=== PATIENT | male | born 1990 | race Caucasian/White ===

== ENCOUNTER 2017-09-15 23:21 | Emergency (ER) | payer MEDICAID, OTHER ==
[2017-09-15 23:28] VITALS: BP 147/77; RESP 18; TEMP 98.3; O2SAT 100
--- NOTE | 2017-09-16 01:02 | ED PDOC ---
Lower Extremity Pain/Injury Time Seen by Provider: 09/15/17 23:33 Chief Complaint (Nursing): Lower Extremity Problem/Injury Chief Complaint (Provider): Left knee pain, twisted History Per: Patient History/Exam Limitations: no limitations Onset/Duration Of Symptoms: Hrs Current Symptoms Are (Timing): Still Present Additional Complaint(s): 27 yo male with no medical problems presents with left knee pain for a few hours. Pt states he was playing football and planted his foot. When he went to push off and turn he left like his knee gave out and popped back in. Pt did not take anything for pain. Pain primarily inner knee and does not radiate. Pt states he cannot bend his knee all the way. Past Medical History Vital Signs: Last Vital Signs Temp 98.3 F 09/15/17 23:25 Pulse 105 H 09/15/17 23:25 Resp 18 09/15/17 23:25 BP 147/77 09/15/17 23:25 Pulse Ox 100 09/15/17 23:25 - Surgical History Surgical History: Appendectomy - Family History Family History: States: Unknown Family Hx - Home Medications Home Medications: Ambulatory Orders Medication Instructions Recorded Clindamycin [Cleocin] 300 mg PO TID #30 cap 11/09/15 Ibuprofen [Motrin Tab] 800 mg PO Q8 PRN #15 tab 11/09/15 - Allergies Allergies/Adverse Reactions: Allergies Allergy/AdvReac Type Severity Reaction Status Date / Time No Known Allergies Allergy Verified 11/09/15 12:58 - ECG O2 Sat by Pulse Oximetry: 100 Medical Decision Making Medical Decision Making: x-ray without acute fracture or dislocation. Knee immobilizer and crutches given. Disposition - Clinical Impression Clinical Impression: Knee injury - Patient ED Disposition Is Patient to be Admitted: No Counseled Patient/Family Regarding: Diagnosis, Need For Followup - Disposition Referrals: Moy Solo MD [Staff Provider] - Disposition: Routine/Home Disposition Time: :23 Condition: GOOD Additional Instructions: Ice, elevation, motrin. Instructions: Knee Pain (DC)
[2017-09-16 01:47] VITALS: PULSE 87
--- NOTE | 2017-09-16 08:28 | RAD ---
PROCEDURE: Left Knee Radiographs. HISTORY: Pain. COMPARISON: None. FINDINGS: BONES: No acute fracture or destructive bony lesion identified. JOINTS: Normal. No osteoarthritis. JOINT EFFUSION: Mild suprapatellar bursa effusion. OTHER FINDINGS: None. IMPRESSION: No acute fracture or dislocation. Mild suprapatellar bursa effusion identified.
== END 2017-09-16 01:47 | disposition home or self-care (01) ==
LOC: H.ER 23:21
DX: S89.92XA Unspecified injury of left lower leg, initial encounter (principal); X50.9XXA Other and unspecified overexertion or strenuous movements or postures, initial encounter; Y92.89 Other specified places as the place of occurrence of the external cause

== ENCOUNTER 2018-04-22 13:15 | Emergency (ER) | payer SELFPAY ==
[2018-04-22 13:40] VITALS: BP 157/79; PULSE 61; RESP 16; TEMP 98; O2SAT 99
--- NOTE | 2018-04-22 15:43 | ED PDOC ---
HPI: Headache Time Seen by Provider: 04/22/18 15:21 Chief Complaint (Nursing): Headache Chief Complaint (Provider): Headache History Per: Patient History/Exam Limitations: no limitations Onset/Duration Of Symptoms: Days (x1 month) Current Symptoms Are (Timing): Intermittent Episodes Additional Complaint(s): Mingo Monroy is a 28 year old male with with no past medical history, who presents to the emergency department complaining of having x1 month of intermittent episodes of left sided headache. Patient states that the headache resolves on its own and that currently he does not have one. Patient states he does not have any nausea or vomiting. PMD: Deacon Toscano Past Medical History Reviewed: Historical Data, Nursing Documentation, Vital Signs Vital Signs: Last Vital Signs Temp 98.0 F 04/22/18 13:37 Pulse 61 04/22/18 13:37 Resp 16 04/22/18 13:37 BP 157/79 H 04/22/18 13:37 Pulse Ox 99 04/22/18 13:37 - Medical History PMH: Migraine (as a child) - Surgical History Surgical History: Appendectomy - Family History Family History: States: Unknown Family Hx - Home Medications Home Medications: Ambulatory Orders Medication Instructions Recorded Ibuprofen [Motrin Tab] 800 mg PO Q8 PRN #15 tab 11/09/15 RX: Clindamycin [Cleocin] 300 mg PO TID #30 cap 11/09/15 RX: Ibuprofen [Motrin Tab] 600 mg PO TID PRN #15 tab 04/22/18 - Allergies Allergies/Adverse Reactions: Allergies Allergy/AdvReac Type Severity Reaction Status Date / Time No Known Allergies Allergy Verified 04/22/18 13:37 Review of Systems ROS Statement: Except As Marked, All Systems Reviewed And Found Negative Constitutional: Negative for: Fever, Chills ENT: Negative for: Nose Pain, Nose Discharge, Nose Congestion Gastrointestinal: Negative for: Nausea, Vomiting Neurological: Positive for: Headache Physical Exam - Reviewed Nursing Documentation Reviewed: Yes Vital Signs Reviewed: Yes - Physical Exam Appears: Positive for: Non-toxic, No Acute Distress Head Exam: Positive for: ATRAUMATIC, NORMOCEPHALIC Skin: Positive for: Normal Color, Warm, Dry Eye Exam: Positive for: Normal appearance, EOMI, PERRL ENT: Positive for: Normal ENT Inspection. Negative for: Sinus Pain/Drainage, Nasal Congestion Neck: Positive for: Normal, Painless ROM Cardiovascular/Chest: Positive for: Regular Rate, Rhythm. Negative for: Murmur Respiratory: Positive for: Normal Breath Sounds. Negative for: Respiratory Dist ress Back: Positive for: Normal Inspection. Negative for: L CVA Tenderness, R CVA Tenderness, Vertebral Tenderness Extremity: Positive for: Normal ROM Neurologic/Psych: Positive for: Alert, Oriented (x3), Gait (wnl). Negative for: Motor/Sensory Deficits - ECG O2 Sat by Pulse Oximetry: 99 (RA) Pulse Ox Interpretation: Normal Medical Decision Making Medical Decision Making: Initial Time: 15:31 Plan: CT scan not indicated given pt. has a normal neuro exam, has no PHILLIP or sinus swelling/tenderness, and chronicity of symptoms. Patient is painfree at present. Pt. comfortable with plan, will f/u with PMD. ------ Scribe Attestation: Documented by Rod Nguyen, acting as a scribe for Hamida Espinosa PA-C. Provider Scribe Attestation: All medical record entries made by the Scribe were at my direction and personally dictated by me. I have reviewed the chart and agree that the record accurately reflects my personal performance of the history, physical exam, medical decision making, and the department course for this patient. I have also personally directed, reviewed, and agree with the discharge instructions and disposition. Disposition - Clinical Impression Clinical Impression: Headache - Disposition Referrals: Elvia Toscano MD [Staff Provider] - Disposition: Routine/Home Disposition Time: 16:03 Condition: STABLE Prescriptions: RX: Ibuprofen [Motrin Tab] 600 mg PO TID PRN #15 tab PRN Reason: Pain, Moderate (4-7) Instructions: Migraine Headache (DC) Forms: [employer] (Yakut)
== END 2018-04-22 16:02 | disposition home or self-care (01) ==
LOC: H.ER 13:15
DX: R51 Headache (principal)